=== PATIENT | female | born 1985 | race Caucasian/White ===

== ENCOUNTER 2018-06-27 11:16 | Emergency (ER) | payer OTHER ==
[~2018-06-27] VITALS: Ht 167.6 cm; Wt 122.5 kg
[2018-06-27] MEDS ORDERED: AMOXIL 875 MG875 M1 PO (12:03)
[2018-06-27 12:15] VITALS: BP 122/89
== END 2018-06-27 12:15 | disposition home or self-care (01) ==
LOC: M.ERS 11:16
DX: J02.0 Streptococcal pharyngitis (principal)

== ENCOUNTER 2019-03-31 16:15 | Emergency (ER) | payer OTHER ==
[~2019-03-31] VITALS: Ht 167.6 cm; Wt 117.9 kg
[~2019-03-31 16:15] MED LIST: AMOXIL 875 MG875 M1 PO
[2019-03-31 17:43] LABS: URINE BILIRUBIN NEGATIVE (Negative); URINE BLOOD TRACE (Negative); URINE CLARITY CLEAR; URINE COLOR YELLOW; URINE GLUCOSE-RANDOM NEGATIVE (Negative); URINE KETONES TRACE (Negative); URINE LEUKOCYTES-REFLEX NEGATIVE (Negative); URINE NITRITE-REFLEX NEGATIVE (Negative); URINE PROTEIN NEGATIVE (Negative); URINE SPECIFIC GRAVITY 1.025 (1.005-1.030); URINE UROBILINOGEN 0.2 E.U./dl (0.2-1.0)
[2019-03-31 17:50] LABS: ABSOLUTE EOSINOPHILS 0.2 thou/uL (0.0-0.7); ABSOLUTE LYMPHOCYTES 1.9 thou/uL (0.8-5.3); ABSOLUTE MONOCYTES 0.5 thou/uL (0.0-1.2); ABSOLUTE NEUTROPHILS 5.6 thou/uL (1.6-8.1); BASOPHILS 0.4 %; EOSINOPHILS 2.4 %; HEMATOCRIT 38.1 % (37.0-47.0); HEMOGLOBIN 13.3 gm/dL (12.0-15.0); LYMPHOCYTES 23.3 %; MCHC 34.9 g/dL (28.0-37.0); MCV 88.9 fL (80.0-100.0); MONOCYTES 6.4 %; MPV 7.6 fl. (7.2-11.1); NUCLEATED RBCS 0 /100WBC; PLATELET COUNT* 237 thou/uL (150-400); POLYS 67.5 %; RBC 4.29 mil/uL (4.20-5.00); RDW-CV 12.9 % (10.5-14.5); WBC 8.3 thou/uL (4.0-11.0)
[2019-03-31 17:58] LABS: CALCIUM 8.2 mg/dL (8.5-10.1); CREATININE 1.3 mg/dL (0.6-1.3); POTASSIUM 3.9 mmol/L (3.5-5.1)
[2019-03-31 18:02] LABS: ALBUMIN 3.5 g/dL (3.4-5.0); TOTAL BILIRUBIN 0.2 mg/dL (<0.1-1.0); TOTAL PROTEIN 7.8 g/dL (6.4-8.2)
[2019-03-31] MEDS ORDERED: NORCO 5-325 TA1 EAC1 PO (18:48)
[2019-03-31] MEDS ORDERED: MEDROLDOSEPACK PO (18:48)
[2019-03-31] MEDS ORDERED: LIDODERM1 EACH TRANSDERM (18:48)
[2019-03-31 18:59] VITALS: BP 138/79
== END 2019-03-31 18:59 | disposition home or self-care (01) ==
LOC: M.ERS 16:15
PROVIDERS: Physician Assistant
DX: R10.9 Unspecified abdominal pain (principal); Z98.51 Tubal ligation status

== ENCOUNTER 2019-04-07 13:10 | Emergency (ER) | payer OTHER ==
[~2019-04-07] VITALS: Ht 167.6 cm; Wt 117.9 kg
[~2019-04-07 13:10] MED LIST changes: +LIDODERM1 EACH TRANSDERM; +MEDROLDOSEPACK PO; +NORCO 5-325 TA1 EAC1 PO
[2019-04-07] MEDS ORDERED: HYDROCODON-ACE1 EAC7 PO (14:22)
[2019-04-07] MEDS ORDERED: VALACYCLOVIR1000 MG PO (14:22)
[2019-04-07 14:46] VITALS: BP 140/78
== END 2019-04-07 14:47 | disposition home or self-care (01) ==
LOC: M.ERS 13:10
DX: B02.9 Zoster without complications (principal); Z98.51 Tubal ligation status